=== PATIENT | female | born 1955 | race African-American/Black ===

== ENCOUNTER 2016-07-10 13:17 | Inpatient (IN) | payer MEDICAID, OTHER ==
[~2016-07-10] VITALS: Ht 157.5 cm; Wt 44.0 kg
[~2016-07-10 13:17] MED LIST: ALENDRONAT70 MG/75 M PO; AMLODIPINE BES10 MG PO; CEPHALEXIN500 M2 PO; COLACE100 M1 PO; KLOR-CON 1010 ME1 PO; LACTINEX1 TAB.CHEW PO; LEVOFLOXACIN250 MG PO; LISINOPRIL10 M1 PO; MAGNESIUM OXID200 MG PO; METOPROLOL50 M1 PO; Metoprolol Tartrate PO; ONDANSETRON8 M1 PO; OXYCODONE AND A1 TA1 PO; OYSTER SHELL C500 M3 PO; ZOCOR40 MG PO
[2016-07-10 13:34] VITALS: BP 144/86
--- NOTE | 2016-07-10 13:43 | NUR ---
Patient to XRAY via wheelchair per tech.
--- NOTE | 2016-07-10 13:47 | NUR ---
Patient back from XRAY via wheelchair per tech.
--- NOTE | 2016-07-10 14:31 | NUR ---
Patient ambulated to bed 06.
[2016-07-10] MEDS ORDERED: NACL 0.9% 1,000 ML IV ONE (14:50)
--- NOTE | 2016-07-10 14:56 | NUR ---
Dr. Manriquez evaluating patient at bedside.
--- NOTE | 2016-07-10 15:07 | NUR ---
PT CAME IN WITH CO RECTAL BLEEDING.
[2016-07-10] MEDS ORDERED: MORPHINE SULFATE 4 MG/ML SYR IVP ONE (15:10)
--- NOTE | 2016-07-10 15:43 | NUR ---
Patient went to CT via wheelchair per tech.
--- NOTE | 2016-07-10 15:59 | NUR ---
Patient back from CT via wheelchair per tech.
--- NOTE | 2016-07-10 16:45 | NUR ---
PT TRANSFERRED TO 106B WITH A MONITOR.RIGHT UPPER ARM 20 GAUGE IV STILL PATENT AND INTACT WITH IVF 0.9 NS ONGOING.
--- NOTE | 2016-07-10 17:00 | NUR ---
PATIENT ADMITTED TO TELE FROM ER WITH C/O LLQ PAIN. PATIENT DX WITH ANEMIA, RECTAL BLEED, AND HEMORRHOIDS. PATIENT IS AAOX4. TRANSFERRED FROM [facility] TO BED, AMBULATED WELL TO BATHROOM. IV SITE PATENT AND INTACT. NO S/S OF RESPIRATORY DISTRESS. DENIES PAIN AT THIS TIME. PATIENT HAS SPOTTING BLEED IN RECTAL AREA. NO EDEMA. SAFETY MEASURES FOR FALL IN PLACE. CALL LIGHT WITHIN REACH. WILL CONTINUE TO MONITOR.
[2016-07-10] MEDS ORDERED: LORazepam 2 MG/ML VIAL IVP PRN (19:05)
[2016-07-10] MEDS ORDERED: ALBUTEROL 0.083% 2.5 MG/3 ML NEBU IH PRN (19:05)
[2016-07-10] MEDS ORDERED: ONDANSETRON 4 MG/2 ML VIAL IVP PRN (19:05)
--- NOTE | 2016-07-10 19:05 | NUR ---
PATIENT SEEN BY DR. CANALES AT BEDSIDE. NO S/S OF ACUTE DISTRESS.
--- NOTE | 2016-07-10 19:15 | NUR ---
SBAR REPORT GIVEN TO FREDY CASPER AT PT BEDSIDE. NO S/S OF ACUTE DISTRESS.
[2016-07-10] MEDS: NACL 0.9% 1,000 ML IV SCH (19:18)
[2016-07-10] MEDS ORDERED: BOWEL EVACUANT DRINK 4,000 ML PDS PO ONE (19:20)
--- NOTE | 2016-07-10 19:30 | NUR ---
RECEIVED REPORT FROM KARON DANIEL AT BEDSIDE. PT IS ALERT AWAKE ORIENTED X4. INITIAL ASSESSMENT DONE. NO S/S OF RESPIRATORY DISTRESS OR SOB NOTED. NO C/O PAIN OR ANY DISCOMFORT AT THIS TIME. PLAN OF CARE REVIEWED TO PT AND VERBALIZED UNDERSTANDING. CALL LIGHT WITHIN REACH. WILL CONTINUE TO MONITOR.
[2016-07-10 20:00] VITALS: BP 139/83
[2016-07-10] MEDS: SIMVASTATIN 40 MG TAB PO SCH (20:25)
[2016-07-10] MEDS: MORPHINE SULFATE 2 MG/ML SYR IVP PRN (20:26)
[2016-07-11] VITALS: BP 136/81
--- NOTE | 2016-07-11 00:20 | NUR ---
PT IS SLEEPING RIGHT NOW BUT EASILY AROUSABLE. NO S/S OF ANY DISCOMFORT AT THIS TIME. ALL NEEDS ARE ATTENDED. CALL LIGHT WITHIN REACH. WILL CONTINUE TO MONITOR.
[2016-07-11] MEDS: MORPHINE SULFATE 2 MG/ML SYR IVP PRN (03:14)
[2016-07-11 04:00] VITALS: BP 129/73
--- NOTE | 2016-07-11 05:15 | NUR ---
AM CARE RENDERED. BED LINEN CHANGED. INSTRUCTED PT TO REPOSITION. KEPT CLEAN AND DRY. CALL LIGHT WITHIN REACH. WILL CONTINUE TO MONITOR.
--- NOTE | 2016-07-11 07:25 | NUR ---
PT HAS NO S/S OF ANY DISCOMFORT. PLAN OF CARE ENDORSE TO AM SHIFT NURSE FOR CONTINUITY OF CARE.
--- NOTE | 2016-07-11 07:26 | NUR ---
RECEIVED REPORT FROM NIGHT RN AT PT BEDSIDE. PT AMBULATORY TO BATHROOM. NO S/S OF ACUTE DISTRESS. AAOX4. CALL LIGHT WITHIN REACH. IV SITE PATENT AND INTACT. DENIES PAIN. LINENS CLEAN AND DRY. PATIENT TAKING BOWEL PREP, TOLERATING WELL. PATIENT HAS DIRTY WATERY STOOL. PT AWARE OF COLONOSCOPY PROCEDURE. WILL CONTINUE TO MONITOR.
--- NOTE | 2016-07-11 07:53 | NUR ---
PATIENT HAS BEEN SCREENED AND CATEGORIZED HIGH NUTRITION RISK. PATIENT WILL BE SEEN WITHIN 1-2 DAYS OF ADMISSION. 07/11/16-07/12/[address]
[2016-07-11 08:00] VITALS: BP 136/89
[2016-07-11] MEDS: NACL 0.9% 1,000 ML IV SCH ×2 (08:23→21:43)
[2016-07-11] MEDS ORDERED: MAGNESIUM CITRATE 300 ML BTL PO SCH (08:30)
[2016-07-11] MEDS: DOCUSATE SODIUM 100 MG GELCAP PO SCH (08:56)
[2016-07-11] MEDS: LISINOPRIL 10 MG TAB PO SCH (08:56)
[2016-07-11] MEDS: amLODIPine 5 MG TAB PO SCH (08:56)
[2016-07-11] MEDS: METOPROLOL 50 MG TAB PO SCH (08:56)
[2016-07-11] MEDS ORDERED: MAG SULF 2000 MG/WATER PREMIX 50 ML IV SCH (09:00)
--- NOTE | 2016-07-11 09:00 | NUR ---
PATIENT SEEN BY DR. CANALES. NEW ORDERS RECEIVED. PATIENT TOLERATING BOWEL PREP.
--- NOTE | 2016-07-11 10:20 | NUR ---
PATIENT STARTED ON BLOOD TRANSFUSION. NO S/S OF ACUTE DISTRESS. IV SITE PATENT AND INTACT. DENIES DISCOMFORT. AMBULATORY. CALL LIGHT WITHIN REACH. WILL CONTINUE TO MONITOR.
[2016-07-11] MEDS ORDERED: MIDAZOLAM 2 MG/2 ML VIAL ONE ×2 (11:57)
[2016-07-11] MEDS ORDERED: fentaNYL 0.05 MG/ML VIAL ONE (11:57)
[2016-07-11] MEDS ORDERED: diphenhydrAMINE 50 MG/ML VIAL ONE (11:57)
--- NOTE | 2016-07-11 12:00 | NUR ---
PATIENT TAKEN OFF FLOOR FOR COLONOSCOPY. BLOOD CURRENTLY TRANSFUSING. NO S/S OF DISTRESS. SON AT BEDSIDE, MADE AWARE OF PROCEDURE.
[2016-07-11] MEDS: MIDAZOLAM 2 MG/2 ML VIAL IVP ONE ×2 (12:10→12:59)
[2016-07-11] MEDS: fentaNYL 0.05 MG/ML VIAL IVP ONE ×2 (12:11→12:59)
--- NOTE | 2016-07-11 12:23 | NUR ---
CM NOTE INITIAL REVIEW SENT TO [facility] FAX# [phone] PH# BRENDON [phone] AUGUST [phone]
--- NOTE | 2016-07-11 12:45 | NUR ---
PATIENT RETURNED FROM COLONOSCOPY. PT SLEEPING, EASILY AWAKENS. NO S/S OF ACUTE DISTRESS. VS WNL. WILL CONTINUE TO MONITOR.
--- NOTE | 2016-07-11 13:45 | NUR ---
07/11/16 RD INITIAL ASSESSMENT COMPLETED PLEASE REFER TO NUTRITION ASSESSMENT UNDER CARE ACTIVITY FOR ESTIMATED NUTRITIONAL NEEDS. RD RECOMMENDATIONS: 1. WHEN MEDICALLY APPROPRIATE ADVANCE DIET TO SOFT. 2. CONSIDER ADDING BOOST PLUS TID ONCE DIET IS ADVANCED D/T UNDERWEIGHT. 3. RD WILL F/U 3-5 DAYS; MODERATE RISK. LESA REYES RD
[2016-07-11 16:10] VITALS: BP 126/61
--- NOTE | 2016-07-11 16:22 | NUR ---
DR. CANALES PAGED REGARDING FEVER 101.1, NO NEW ORDERS. WILL MEDICATE ORDERED WITH TYLENOL, COOLING MEASURES IN PLACE. DR. CANALES NOTIFIED OF COLONOSCOPY REPORT, MD TO TALK WITH GENERAL SURGEON REGARDING PLAN OF CARE.
[2016-07-11] MEDS: ACETAMINOPHEN 325 MG TAB PO PRN (16:25)
--- NOTE | 2016-07-11 17:35 | NUR ---
TEMPERATURE RE-ASSESSMENT 100.5, WILL CONTINUE COOLING MEASURES.
--- NOTE | 2016-07-11 18:49 | NUR ---
PATIENT RESTING WELL, TOLERATED FOOD WELL, ATE 100%, DENIES ANY PAIN OR DISCOMFORT
--- NOTE | 2016-07-11 19:09 | NUR ---
NO DISTRESS/SOB/WHEEZING NOTED AT THIS TIME. NO INDICATION FOR HHN PRN TX.
--- NOTE | 2016-07-11 19:28 | NUR ---
SBAR REPORT GIVEN TO EDITOR SOUND WALDO, PATIENT NO SIGN OF ACUTE DISTRESS
--- NOTE | 2016-07-11 19:28 | NUR ---
REPORT GIVEN AT BEDSIDE,PATIENT IS CURRENTLY AWAKE ALERT ORIENTED RESTING IN BED AT THIS TIME,IVF INFUSING WELL IV SITE PATENT NO INFILTRATION NOTED,PATIENT ON FALL PRECAUTIONS.PATIENT DENIES PAIN AT THIS TIME.WILL CONTINUE TO OBSERVE.CALL LIGHT WITHIN REACH.
--- NOTE | 2016-07-11 20:00 | NUR ---
Patient's Plan of Care was discussed and reviewed with DICTAPHONE OPERATOR: ESDRAS LINK
[2016-07-11 20:05] VITALS: BP 100/61
[2016-07-11] MEDS: SIMVASTATIN 40 MG TAB PO SCH (20:33)
--- NOTE | 2016-07-11 20:35 | NUR ---
ROUNDS MADE EDUCATION GIVEN ON ROUTINE NIGHTIME MEDICATIONS PATIENT VERBALIZED UNDERSTANDING AND TOOK HER MEDICATIONS.CALL LIGHT WITHIN REACH WILL CONTINUE TO MONITOR.
--- NOTE | 2016-07-11 22:11 | NUR ---
ROUNDS MADE SON AT BEDSIDE WITH THE PATIENT.IV MACHINE CHECKED KEEPS BEEPING SAYING AIR IN THE LINE.IV LINE DISCONNECTED FROM THE PATIENT AND PRIMED GOT ALL THE AIR OUT.CONNECTION PORT CLEANED WITH ALCOHOL AND THEN RECONNECTED TO THE PATIENT AGAIN.PATIENT CURRENTLY STABLE NO PAIN OR DISCOMFORT NOTED AT THIS TIME SON AND PATIENT WATCHING TV.
--- NOTE | 2016-07-12 00:10 | NUR ---
PATIENT IS SLEEPING QUIETLY IN BED IN NO DISTRESS AT THIS TIME,IVF INFUSING WELL IV SITE PATENT.NO PAIN OR DISCOMFORT NOTED.WILL CONTINUE TO MONITOR.
[2016-07-12] MEDS: NACL 0.9% 1,000 ML IV SCH ×2 (01:19→15:47)
--- NOTE | 2016-07-12 03:15 | NUR ---
PATIENT SLEEPING IN BED,IVF INFUSING WELL,NO PAIN OR DISCOMFORT NOTED.WILL CONTINUE TO MONITOR.CALL LIGHT WITHIN REACH.
[2016-07-12 04:00] VITALS: BP 130/77
[2016-07-12] MEDS: MORPHINE SULFATE 2 MG/ML SYR IVP PRN ×3 (04:48→15:40)
--- NOTE | 2016-07-12 04:48 | NUR ---
PATIENT STABLE VITALS STABLE PATIENT IS AFEBRILE AND COMPLAIN OF SEVERE PAIN RN [facility] WILL MEDICATE FOR PAIN.
--- NOTE | 2016-07-12 06:30 | NUR ---
PATIENT SLEEPING IN BED.
--- NOTE | 2016-07-12 07:25 | NUR ---
PATIENT STABLE REPORT ENDORSED AT BEDSIDE TO FREDY GUEVARA.
--- NOTE | 2016-07-12 07:40 | NUR ---
PT AAOX4, PLEASANT AND COOPERATIVE LYING IN BED COMFORTABLY AND WAS IN NO DISTRESS. SHIFT ASSESSMENT DONE AND CHARTED. PLAN OF CARE, MEDS, TREATMENTS AND SAFETY DISCUSSED WITH PT AND PT VERBALIZED UNDERSTANDING. PT AMBULATED TO BR WITH STEADY GAIT. WILL CONTINUE TO MONITOR PT.
[2016-07-12 08:00] VITALS: BP 125/76
[2016-07-12] MEDS: amLODIPine 5 MG TAB PO SCH (08:07)
[2016-07-12] MEDS: DOCUSATE SODIUM 100 MG GELCAP PO SCH (08:07)
[2016-07-12] MEDS: METOPROLOL 50 MG TAB PO SCH (08:08)
[2016-07-12] MEDS: LISINOPRIL 10 MG TAB PO SCH (08:08)
--- NOTE | 2016-07-12 08:40 | NUR ---
DR. CANALES WAS IN TO SEE PT AND MD LEFT NEW ORDERS.
[2016-07-12 09:39] VITALS: BP 123/77
--- NOTE | 2016-07-12 10:36 | NUR ---
PT MEDICATED WITH MORPHINE 2 MG FOR C/O ABDOMINAL PAIN 10/30. PT'S FAMILY VISITING AT BEDSIDE.
--- NOTE | 2016-07-12 11:06 | NUR ---
PT STATED THAT HER ABDOMINAL PAIN INTENSITY WAS LESS 4/10. WILL CONTINUE TO CHECK ON PT.
--- NOTE | 2016-07-12 14:13 | NUR ---
PT AMBULATING IN THE HALLWAY WITH STEADY GAIT. NO C/O PAIN AT THIS TIME.
--- NOTE | 2016-07-12 15:40 | NUR ---
PT MEDICATED WITH MORPHINE 2 MG PER PRN ORDER FOR C/O ABDOMINAL PAIN 12/30. WILL CONTINUE TO CHECK PT.
[2016-07-12 16:03] VITALS: BP 109/72
--- NOTE | 2016-07-12 16:10 | NUR ---
PT RESTING IN BED COMFORTABLY. PT STATED THAT HER PAIN WAS 2/10.
[2016-07-12] MEDS: ACETAMINOPHEN 325 MG TAB PO PRN (18:35)
[2016-07-12] MEDS: SIMETHICONE 80 MG TAB.CHEW PO PRN (18:35)
--- NOTE | 2016-07-12 18:39 | NUR ---
PT MEDICATED WITH TYLENOL 650 MG PO FOR C/O ABDOMINAL PAIN 12/30 AND GAS PAIN. PT AWARE THAT IT WAS TOO SOON FOR MORPHINE. PT'S FAMILY VISITING AT BEDSIDE.
--- NOTE | 2016-07-12 19:10 | NUR ---
PATIENT IS RESTING IN BED WITH FAMILY AT BEDSIDE CONVERSATING PATIENT IS SMILING AND TALKING.WILL COME BACK TO CHECK ON THE PATIENT.
--- NOTE | 2016-07-12 19:10 | NUR ---
REPORT GIVEN TO WALDO GARCIA. NO CHANGES NOTED IN PT'S CONDITION. PT'S FAMILY VISITING AT BEDSIDE.
--- NOTE | 2016-07-12 19:39 | NUR ---
PATIENT IS CURRENTLY RESTING IN BED AWAKE ALERT ORIENTED IVF INFUSING WELL,IV SITE PATENT PATIENT STATES,"THE GAS PILL WAS VERY EFFECTIVE I FEEL SO MUCH BETTER IT TOOK MY STOMACH PAIN AWAY." PATIENT WATCHING TV AT THIS TIME CALL LIGHT WITHIN REACH WILL CONTINUE TO MONITOR.
--- NOTE | 2016-07-12 20:00 | NUR ---
Patient's Plan of Care was discussed and reviewed with INTERACTIVE DESIGNER: WALDO LINK
[2016-07-12 20:01] VITALS: BP 107/69
[2016-07-12] MEDS: SIMVASTATIN 40 MG TAB PO SCH (20:08)
--- NOTE | 2016-07-12 20:08 | NUR ---
I ASKED THE PATIENT WHEN WAS THE LAST TIME SHE HAD A BOWEL MOVEMENT AND SAID 07/11/16 I ASKED HER IF SHE HAS HAD ANY LOOSE STOOLS OR HAS HAD ANY DIARRHEA TODAY PATIENT STATES,"NO I HAVEN'T HAD A BM YET TODAY AND I DON'T HAVE ANY LOOSE STOOLS OR DIARRHEA." NO SIGNS OF ANY ACTIVE BLEEDING NOTED WILL CONTINUE TO MONITOR.CALL LIGHT WITHIN REACH.
--- NOTE | 2016-07-13 00:15 | NUR ---
PATIENT AWAKE ALERT VITALS SIGNS TAKEN PT IS AFEBRILE PATIENT DENIES PAIN AND DISCOMFORT.WILL CONTINUE TO MONITOR.
[2016-07-13 00:38] VITALS: BP 121/70
--- NOTE | 2016-07-13 03:10 | NUR ---
PATIENT IS CURRENTLY SLEEPING IN NO DISTRESS WILL CONTINUE TO MONITOR.CALL LIGHT WITHIN REACH.
[2016-07-13] MEDS: SIMETHICONE 80 MG TAB.CHEW PO PRN ×3 (04:21→20:08)
[2016-07-13] MEDS: ACETAMINOPHEN 325 MG TAB PO PRN ×3 (04:21→20:07)
--- NOTE | 2016-07-13 04:21 | NUR ---
PATIENT COMPLAINS OF MODERATE PAIN TO ABDOMEN AND REFUSED THE MORPHINE IV WANTS INSTEAD TYLENOL AND IS REQUESTING FOR GAS PAIN PATIENT WILL BE MEDICATED WITH MYLICON WILL CONTINUE TO MONITOR.
[2016-07-13] MEDS: NACL 0.9% 1,000 ML IV SCH ×3 (04:22→20:08)
--- NOTE | 2016-07-13 06:25 | NUR ---
PATIENT IS CURRENTLY SLEEPING.IVF INFUSING WELL IV SITE PATENT NO PAIN OR DISCOMFORT NOTED WILL CONTINUE TO MONITOR.CALL LIGHT WITHIN REACH.
--- NOTE | 2016-07-13 07:40 | NUR ---
PT SLEEPING IN BED COMFORTABLY AND WAS IN NO DISTRESS. PT ROUSABLE AND VOICED NO C/O PAIN/ DISCOMFORT. SHIFT ASSESSMENT DONE AND CHARTED. PLAN OF CARE, MEDS, TREATMENTS AND SAFETY DISCUSSED WITH PT AND PT VERBALIZED UNDERSTANDING. WILL CONTINUE TO CHECK ON PT.
[2016-07-13 08:00] VITALS: BP 141/80
[2016-07-13] MEDS: DOCUSATE SODIUM 100 MG GELCAP PO SCH (08:30)
[2016-07-13] MEDS: METOPROLOL 50 MG TAB PO SCH (08:30)
[2016-07-13] MEDS: amLODIPine 5 MG TAB PO SCH (08:30)
[2016-07-13] MEDS: LISINOPRIL 10 MG TAB PO SCH (08:31)
[2016-07-13] MEDS ORDERED: HYDROcodone/APAP 5/325 MG 1 TAB TAB PO PRN (08:45)
--- NOTE | 2016-07-13 09:00 | NUR ---
PT TOOK DIET, FLUIDS AND SCHEDULED MEDS WELL. PT WAS SEEN BY DR. CANALES AND LEFT NEW ORDERS.
--- NOTE | 2016-07-13 13:10 | NUR ---
PT C/O UNCOMFORTABLE BECAUSE OF CONSTIPATION. PHONED DR. CANALES AND MADE AWARE OF PT'S COMPLAIT WHEN SHE CALLED BACK. GAVE NEW ORDERS.
[2016-07-13] MEDS ORDERED: POLYETHYLENE GLYCOL 17 GM/PKT PO SCH (13:30)
[2016-07-13] MEDS: POLYETHYLENE GLYCOL 17 GM/PKT PO SCH (14:37)
--- NOTE | 2016-07-13 15:00 | NUR ---
PT WAS SEEN BY DR. GALAN AND MD LEFT NEW ORDERS.
[2016-07-13 15:59] VITALS: BP 142/93
--- NOTE | 2016-07-13 18:37 | NUR ---
PT C/O DIFFICULTY WITH HER DIET SHE DOES NOT HAVE TEETH. DR. CANALES WAS IN AND MADE AWARE OF SAME. PT'S FAMILY VISITING AT THIS TIME. REMINDED PT THAT SHE WILL BE NPO AFTER MIDNIGHT AND PT VERBALIZED UNDERSTANDING.
--- NOTE | 2016-07-13 19:12 | NUR ---
REPORT GIVEN TO WALDO GARCIA. PT LYING IN BED COMFORTABLY AND VOICED NO C/O ANY DISCOMFORT.
--- NOTE | 2016-07-13 19:13 | NUR ---
PATIENT IS CURRENTLY AWAKE ALERT ORIENTED RESTING IN BED PATIENT DENIES PAIN AND DISCOMFORT.IVF INFUSING WELL IV SITE PATENT.PATIENT IN NO DISTRESS WILL CONTINUE TO MONITOR.CALL LIGHT WITHIN REACH.
--- NOTE | 2016-07-13 20:00 | NUR ---
Patient's Plan of Care was discussed and reviewed with TIME CLOCK MECHANIC: WALDO LINK
[2016-07-13] MEDS: SIMVASTATIN 40 MG TAB PO SCH (20:08)
--- NOTE | 2016-07-13 20:08 | NUR ---
PATIENT IS CURRENTLY RESTING IN BED EDUCATION GIVEN ON ROUTINE MEDICATION AND PATIENT VERBALIZED UNDERSTANDING AND TOOK HER MEDS.WILL CONTINUE TO MONITOR.
[2016-07-13 20:27] VITALS: BP 118/69
--- NOTE | 2016-07-13 21:45 | NUR ---
PATIENT RESTING COMFORTABLY IN BED WILL CONTINUE TO MONITOR.
--- NOTE | 2016-07-14 00:05 | NUR ---
PATIENT IS CURRENTLY STABLE RESTING IN BED DENIES PAIN IVF INFUSING WELL IV SITE REMAINS PATENT CALL LIGHT WITHIN REACH WILL CONTINUE TO MONITOR.
[2016-07-14 00:09] VITALS: BP 120/72
--- NOTE | 2016-07-14 02:53 | NUR ---
PATIENT SLEEPING NO PAIN OR DISCOMFORT IV INFUSING WELL IV SITE PATENT.CALL LIGHT WITHIN REACH.
--- NOTE | 2016-07-14 04:15 | NUR ---
PATIENT IS CURRENTLY RESTING IN BED,IVF INFUSING WELL IV SITE PATENT WILL CONTINUE TO MONITOR.NEEDS MET.
[2016-07-14] MEDS: MORPHINE SULFATE 2 MG/ML SYR IVP PRN ×2 (05:02→21:21)
--- NOTE | 2016-07-14 07:23 | NUR ---
PATIENT STABLE REPORT ENDORSED TO FREDY GUEVARA HE WILL RESUME CARE OF THE PATIENT.
--- NOTE | 2016-07-14 07:30 | NUR ---
RECEIVED PT LYING IN BED SLEEPING BUT EASILY ROUSABLE. PT. STATED THAT SHE HAD BEARABLE ABDOMINAL PAIN 06/30. NO OTHER C/O DISCOMFORT VOICED BY PT. PT NPO FOR MEDIPORT PLACEMENT TODAY. SHIFT ASSESSMENT DONE AND CHARTED. PLAN OF CARE, MEDS, TREATMENTS AND SAFETY DISCUSSED WITH PT AND PT VERBALIZED UNDERSTANDING. WILL CONTINUE TO MONITOR PT.
[2016-07-14] MEDS: NACL 0.9% 1,000 ML IV SCH ×2 (07:50→21:21)
--- NOTE | 2016-07-14 07:58 | NUR ---
RECEIVED MESSAGE FROM OR THAT PT'S MEDIPORT PLACEMENT FOR TODAY WAS CANCELLED. VERIFIED SAME BY PHONE TO OR. PT MADE AWARE OF SAME.
[2016-07-14 08:00] VITALS: BP 145/81
[2016-07-14] MEDS: POLYETHYLENE GLYCOL 17 GM/PKT PO SCH (09:24)
[2016-07-14] MEDS: LISINOPRIL 10 MG TAB PO SCH (09:25)
[2016-07-14] MEDS: amLODIPine 5 MG TAB PO SCH (09:25)
[2016-07-14] MEDS: METOPROLOL 50 MG TAB PO SCH (09:26)
[2016-07-14] MEDS: DOCUSATE SODIUM 100 MG GELCAP PO SCH (09:26)
[2016-07-14] MEDS: ACETAMINOPHEN 325 MG TAB PO PRN ×3 (09:31→23:53)
[2016-07-14] MEDS: SIMETHICONE 80 MG TAB.CHEW PO PRN ×3 (09:32→23:53)
--- NOTE | 2016-07-14 09:40 | NUR ---
DR. CANALES WAS IN TO SEE PT. AWARE OF MEDIPORT PLACEMENT CANCELLATION. NO NEW ORDERS NOTED AT THIS TIME.
--- NOTE | 2016-07-14 12:30 | NUR ---
PT TOOK DIET AND FLUIDS WELL. NO C/O PAIN VOICED AT THIS TIME.
--- NOTE | 2016-07-14 13:43 | NUR ---
DR. GALAN WAS IN TO SEE PT AND MD LEFT NEW ORDERS. PT'S FAMILY VISITING AT BEDSIDE.
[2016-07-14 16:00] VITALS: BP 125/77
--- NOTE | 2016-07-14 16:41 | NUR ---
PT C/O ABDOMINAL/GAS PAIN AND PT MEDICATED PER PRN ORDER. WILL CONTINUE TO CHECK ON PT.
--- NOTE | 2016-07-14 18:30 | NUR ---
PT TOOK DIET AND FLUIDS WELL. PT REMINDED THAT SHE WILL BE NPO AFTER MIDNIGHT FOR PROCEDURE IN AM.
--- NOTE | 2016-07-14 19:27 | NUR ---
REPORT GIVEN TO ADITHYA RN. NO CHANGES NOTED IN PT'S CONDITION.
--- NOTE | 2016-07-14 19:30 | NUR ---
RECEIVED FROM AM RN IN BED AWAKE . RE-ORIENTED TO CALL LIGHT FOR HELP AND IF IN PAIN. CARE PLANS FOR THE NIGHT DISCUSSED WITH HER. IVF SITE TO RIGHT FOREARM #20 INTACT AND NO INFILTRATION NOTED. ENCOURAGED TO CALL FOR ANY HELP SHE MAY NEED OR IF IN PAIN.
[2016-07-14] MEDS: SIMVASTATIN 40 MG TAB PO SCH (21:21)
--- NOTE | 2016-07-14 21:25 | NUR ---
PT. MEDICATED WITH MORPHINE ORDERED IVP RELATED TO PAIN BROUGHT ABOUT BY THE" MASS IN HER BUTTOCK " STATED BY PT. STAYING WITH PT. FOR A WHILE WITH PT. RT VERY RESTLESS AND IN PAIN.
--- NOTE | 2016-07-14 22:31 | NUR ---
PT. SLEEPING AT THIS TIME. ABLE TO USE CALL LIGHT FOR ANY HELP SHE NEEDS OR IF IN PAIN. BED ALARM ON.
[2016-07-14 23:21] VITALS: BP 120/70
--- NOTE | 2016-07-14 23:46 | NUR ---
SLEEPING. WOKE UP WHEN VITAL SIGNS TAKEN. NO FURTHER COMPLAINTS DONE.
--- NOTE | 2016-07-15 03:53 | NUR ---
SLEEPING . NO RESTLESSNESS. CALL LIGHT WITH IN REACH.
[2016-07-15] MEDS: MORPHINE SULFATE 2 MG/ML SYR IVP PRN (05:17)
--- NOTE | 2016-07-15 06:43 | NUR ---
BEEN NPO SINCE MIDNIGHT. PT. AWARE OF IT. VERBALIZES NEEDS WELL. NO SOB. FOR [facility] CATH PLACEMENT AT 0730 SCHEDULE.
--- NOTE | 2016-07-15 07:10 | NUR ---
REPORT RECEIVED FROM ADITHYA AT BEDSIDE. PT SLEEPING AT THIS TIME. PT NPO FOR MEDIPORT PLACEMENT TODAY.
[2016-07-15] MEDS ORDERED: LIDOCAINE 1% 50 ML ONE (07:25)
[2016-07-15] MEDS ORDERED: BUPIVACAINE-MPF 0.25% 30 ML VIAL INJ ONE (07:25)
[2016-07-15] MEDS ORDERED: ceFAZolin 1,000 MG VIAL ONE ×2 (07:25→07:54)
[2016-07-15 07:30] VITALS: BP 138/84
--- NOTE | 2016-07-15 07:30 | NUR ---
PT LYING IN BED SLEEPING COMFORTABLY AND WAS IN NO DISTRESS. PT EASILY ROUSABLE AND VOICED NO C/O PAIN AT THIS TIME. SHIFT ASSSESSMENT DONE AND CHARTED. PLAN OF CARE, MEDS, TREATMENTS AND SAFETY DISCUSSED WITH PT AND PT VERBALIZED UNDERSTANDING. PT. TO OR PER BED ACCOMPANIED BY OR STAFF FOR MEDIPORT PLACEMENT. PT LET IN A STABLE CONDITION.
[2016-07-15] MEDS ORDERED: PROPOFOL 200 MG/20 ML VIAL IV ONE (08:00)
[2016-07-15] MEDS ORDERED: fentaNYL 0.05 MG/ML VIAL ONE (08:11)
[2016-07-15] MEDS ORDERED: MIDAZOLAM 2 MG/2 ML VIAL ONE (08:11)
[2016-07-15] MEDS ORDERED: ONDANSETRON 4 MG/2 ML VIAL IVP PRN (08:40)
[2016-07-15] MEDS ORDERED: HYDROmorphone 1 MG/ML AMP IVP PRN ×2 (08:40→09:20)
[2016-07-15] MEDS ORDERED: LACTATED RINGERS 1,000 ML IV SCH (08:40)
[2016-07-15] MEDS ORDERED: MEPERIDINE 25 MG/ML SYR IVP PRN (08:40)
[2016-07-15] MEDS ORDERED: diphenhydrAMINE 50 MG/ML VIAL IVP PRN (08:40)
[2016-07-15] MEDS ORDERED: ONDANSETRON 4 MG/2 ML VIAL IV PRN (09:20)
[2016-07-15] MEDS ORDERED: HYDROcodone/APAP 5/325 MG 1 TAB TAB PO PRN (09:20)
[2016-07-15] MEDS ORDERED: MORPHINE SULFATE 2 MG/ML SYR IVP PRN (09:20)
[2016-07-15] MEDS ORDERED: MORPHINE SULFATE 4 MG/ML SYR IV PRN (09:20)
[2016-07-15 10:00] VITALS: BP 138/89
--- NOTE | 2016-07-15 10:00 | NUR ---
PT RETURNED TO HER ROOM PER BED FROM OR S/P MEDIPORT CATHETER PLACEMENT IN THE UPPER CHEST WITH DRESSINGS NOTED WITH DRIED BLOOD SPOT AND PRESSURE BAG APPLIED TO THE AREA. PT AAOX4 AND C/O ABDOMINAL PAIN FROM GAS AND THE PORT SITE 08/30. REPORT RECEIVED FROM ENRIQUE Calderon RN FROM OR. VSS AND PT RESTING IN BED COMFORTABLY. PT TAKING LIQUIDS AND PO MEDS WELL. WILL CONTINUE TO MONITOR PT.
[2016-07-15] MEDS: SIMETHICONE 80 MG TAB.CHEW PO PRN (10:12)
[2016-07-15] MEDS: POLYETHYLENE GLYCOL 17 GM/PKT PO SCH (10:12)
[2016-07-15] MEDS: ACETAMINOPHEN 325 MG TAB PO PRN (10:13)
[2016-07-15] MEDS: LISINOPRIL 10 MG TAB PO SCH (10:13)
[2016-07-15] MEDS: DOCUSATE SODIUM 100 MG GELCAP PO SCH (10:13)
[2016-07-15] MEDS: amLODIPine 5 MG TAB PO SCH (10:14)
[2016-07-15] MEDS: METOPROLOL 50 MG TAB PO SCH (10:14)
[2016-07-15 10:15] VITALS: BP 136/85
[2016-07-15 10:30] VITALS: BP 144/86
[2016-07-15 10:45] VITALS: BP 152/88
[2016-07-15 11:00] VITALS: BP 142/78
--- NOTE | 2016-07-15 11:20 | NUR ---
PT UP TO THE BR PER SELF AND VOICED NO C/O PAIN/ DISCOMFORT AT THIS TIME.
--- NOTE | 2016-07-15 12:30 | NUR ---
PT TOOK DIET AND FLUIDS WELL. PT NOTED TO BE SLEEPING AFTER.
--- NOTE | 2016-07-15 14:00 | NUR ---
PT NOTED TO BE SLEEPING COMFORTABLY WHEN CHECKED.
--- NOTE | 2016-07-15 14:01 | NUR ---
FAXED CONCURRENT REFVIEW TO [facility] [phone] PHONE BRENDON [phone]
--- NOTE | 2016-07-15 15:00 | NUR ---
DISCHARGED INSTRUCTIONS GIVEN TO PT AND PT VERBALIZED UNDERSTANDING. PT PHONING FAMILY TO PICK HER UP. NO C/O GAS PAIN MADE BY PT AT THIS TIME.
--- NOTE | 2016-07-15 16:30 | NUR ---
SALINE LOCK REMOVED WITH OLD CATH TIP INTACT AND PRESSURE DRESSINGS APPLIED TO SITE. PT DISCHARGED TO HOME PER W/C ACCOMPANIED BY HER BOYFRIEND IN STABLE CONDITION. OROZCO NEEDLE AND ALL PT'S BELONGINGS SENT WITH PT. NO BLEEDING NOTED IN MEDIPORT CATH SITE.
--- NOTE | 2016-07-16 15:45 | NUR ---
RECEIVED CALL FROM BRENDON AT [facility] THAT PT'S ONCOLOGY WITH DR DON HAS BEEN APPROVED. CALL PLACED TO MS MENDIETA AND INFORMED HER THAT APPT HAS BEEN APPROVED. PT STATED THAT SHE ALREADY HAS AN APPT WITH DR DON SCHEDULED FOR THIS THURSDAY.
== END 2016-07-15 16:30 | disposition home or self-care (01) | DRG 240 ==
LOC: MED 13:17 → MTU 15:40
PROVIDERS: ADMIT Hospitalist; ATTEND Hospitalist
PROC: 30233N1 Transfusion of Nonautologous Red Blood Cells into Peripheral Vein, Percutaneous Approach (ICD-10-PCS; 2016-07-10)
PROC: 0DBP8ZX Excision of Rectum, Via Natural or Artificial Opening Endoscopic, Diagnostic (ICD-10-PCS; principal; 2016-07-11 12:00)
PROC: 02HV33Z Insertion of Infusion Device into Superior Vena Cava, Percutaneous Approach (ICD-10-PCS; 2016-07-15)
PROC: B5181ZA Fluoroscopy of Superior Vena Cava using Low Osmolar Contrast, Guidance (ICD-10-PCS; 2016-07-15)
PROC: B547ZZA Ultrasonography of Left Subclavian Vein, Guidance (ICD-10-PCS; 2016-07-15)
DX: C21.8 Malignant neoplasm of overlapping sites of rectum, anus and anal canal (principal); E43 Unspecified severe protein-calorie malnutrition; C78.01 Secondary malignant neoplasm of right lung; N17.9 Acute kidney failure, unspecified; E86.0 Dehydration; C78.02 Secondary malignant neoplasm of left lung; J44.9 Chronic obstructive pulmonary disease, unspecified; K57.30 Diverticulosis of large intestine without perforation or abscess without bleeding; I10 Essential (primary) hypertension; K64.4 Residual hemorrhoidal skin tags; M81.0 Age-related osteoporosis without current pathological fracture; E78.5 Hyperlipidemia, unspecified; D50.0 Iron deficiency anemia secondary to blood loss (chronic); E78.00 Pure hypercholesterolemia, unspecified; Z87.891 Personal history of nicotine dependence; Z92.21 Personal history of antineoplastic chemotherapy; Z86.73 Personal history of transient ischemic attack (TIA), and cerebral infarction without residual deficits; Z87.898 Personal history of other specified conditions; Z92.3 Personal history of irradiation; Z68.1 Body mass index [BMI] 19.9 or less, adult; Z85.850 Personal history of malignant neoplasm of thyroid

== ENCOUNTER 2017-05-18 08:54 | Inpatient (IN) | payer OTHER ==
[~2017-05-18] VITALS: Ht 162.6 cm; Wt 36.3 kg
[~2017-05-18 08:54] MED LIST changes: +ACET-6763 PO; +ALEN70SO1 PO; -ALENDRONAT70 MG/75 M PO; +AMLO-26 PO; -AMLODIPINE BES10 MG PO; +CALC500T17 PO; -CEPHALEXIN500 M2 PO; -COLACE100 M1 PO; +DOCU-299 PO; -KLOR-CON 1010 ME1 PO; +LAC PO; -LACTINEX1 TAB.CHEW PO; -LEVOFLOXACIN250 MG PO; +LISI10TA11 PO; -LISINOPRIL10 M1 PO; -MAGNESIUM OXID200 MG PO; +METO50TA20 PO; -METOPROLOL50 M1 PO; -Metoprolol Tartrate PO; +ONDA8TAB13 PO; -ONDANSETRON8 M1 PO; -OXYCODONE AND A1 TA1 PO; -OYSTER SHELL C500 M3 PO; +SIMV40TA1 PO; -ZOCOR40 MG PO
[2017-05-18 09:09] VITALS: BP 149/97
[2017-05-18] MEDS ORDERED: MORPHINE SULFATE 4 MG/ML SYR IVP ONE (10:15)
[2017-05-18] MEDS ORDERED: KETOROLAC 30 MG/ML VIAL IVP ONE (10:15)
[2017-05-18] MEDS ORDERED: ONDANSETRON 4 MG/2 ML VIAL IVP ONE (10:15)
[2017-05-18 10:46] LABS: BASOPHILS % (AUTO) 0.2 % (0.0-2.0); EOSINOPHILS % (AUTO) 0.7 % (0.0-4.0); HEMATOCRIT 32.9 % (36-48); LYMPHOCYTES # (AUTO) 0.4 K/uL (2.5-16.5); LYMPHOCYTES % (AUTO) 5.8 % (20.5-51.1); MEAN CORPUSCULAR HEMOGLOBIN 33 pg (27-31); MEAN CORPUSCULAR HGB CONC 34 g/dL (33-37); MEAN CORPUSCULAR VOLUME 99 fL (80-94); MONOCYTES # (AUTO) 0.4 K/uL (0.8-1.0); MONOCYTES % (AUTO) 6.7 % (1.7-9.3); NEUTROPHILS # (AUTO) 5.8 K/uL (1.8-7.7); NEUTROPHILS % (AUTO) 86.6 % (42.2-75.2); PLATELET COUNT (AUTO) 193 K/uL (140-450); RED BLOOD CELL COUNT(AUTO) 3.33 MIL/uL (4.20-5.40); RED CELL DISTRIBUTION WIDTH 17.2 % (11.6-13.7); WHITE BLOOD COUNT (AUTO) 6.7 K/uL (4.8-10.8)
[2017-05-18 11:02] LABS: ANION GAP 12.7 (8-16); CARBON DIOXIDE 24.7 mmol/L (21-32); POTASSIUM 4.4 mmol/L (3.5-5.1)
[2017-05-18 11:08] LABS: ALBUMIN 2.5 g/dL (3.4-5.0); TOTAL BILIRUBIN 0.2 mg/dL (0.0-1.0)
[2017-05-18 11:21] LABS: PROTHROMBIN TIME 11.9 secs (10.8-13.4)
[2017-05-18] MEDS ORDERED: LORazepam 2 MG/ML VIAL IVP PRN (12:15)
[2017-05-18] MEDS ORDERED: HYDROcodone/APAP 5/325 MG 1 TAB TAB PO PRN (12:15)
[2017-05-18] MEDS ORDERED: ACETAMINOPHEN 325 MG TAB PO PRN (12:15)
[2017-05-18] MEDS: NACL 0.9% 1,000 ML IV SCH ×2 (12:31→22:50)
[2017-05-18] MEDS ORDERED: amLODIPine 5 MG TAB PO SCH (12:48)
[2017-05-18 13:40] VITALS: BP 138/93
[2017-05-18] MEDS: ALBUTEROL 0.083% 2.5 MG/3 ML NEBU IH SCH ×2 (13:47→19:13)
[2017-05-18] MEDS: MORPHINE SULFATE 4 MG/ML SYR IVP PRN ×2 (14:49→20:01)
[2017-05-18 16:00] VITALS: BP 125/79
[2017-05-18 20:00] VITALS: BP 129/77
[2017-05-19] VITALS: BP 128/64
[2017-05-19] MEDS: ALBUTEROL 0.083% 2.5 MG/3 ML NEBU IH SCH ×3 (01:00→12:48)
[2017-05-19] MEDS: MORPHINE SULFATE 4 MG/ML SYR IVP PRN ×4 (01:50→16:34)
[2017-05-19 04:00] VITALS: BP 120/68
[2017-05-19 07:15] LABS: BASOPHILS % (AUTO) 0.1 % (0.0-2.0); EOSINOPHILS # (AUTO) 0.1 K/uL (0-0.4); HEMATOCRIT 29.7 % (36-48); LYMPHOCYTES # (AUTO) 0.2 K/uL (2.5-16.5); LYMPHOCYTES % (AUTO) 3.5 % (20.5-51.1); MEAN CORPUSCULAR HEMOGLOBIN 33 pg (27-31); MEAN CORPUSCULAR HGB CONC 34 g/dL (33-37); MEAN CORPUSCULAR VOLUME 99 fL (80-94); MONOCYTES # (AUTO) 0.4 K/uL (0.8-1.0); MONOCYTES % (AUTO) 7.4 % (1.7-9.3); NEUTROPHILS # (AUTO) 5.3 K/uL (1.8-7.7); PLATELET COUNT (AUTO) 169 K/uL (140-450); RED CELL DISTRIBUTION WIDTH 18.2 % (11.6-13.7)
[2017-05-19 08:00] VITALS: BP 134/91
[2017-05-19] MEDS: NACL 0.9% 1,000 ML IV SCH (08:11)
[2017-05-19] MEDS ORDERED: methylPREDNISolone SS 40 MG in WATER STERILE 1 ML IV ONE (09:00)
[2017-05-19] MEDS ORDERED: methylPREDNISolone SS 40 MG/ML VIAL IVP SCH (09:00)
[2017-05-19] MEDS ORDERED: ENOXAPARIN 30 MG/0.3 ML SYR SUBQ SCH (09:00)
[2017-05-19 09:33] LABS: ALBUMIN 2.2 g/dL (3.4-5.0); ANION GAP 15.1 (8-16); CARBON DIOXIDE 24.5 mmol/L (21-32); CREATININE 0.7 mg/dL (0.6-1.3); POTASSIUM 4.6 mmol/L (3.5-5.1); TOTAL BILIRUBIN 0.2 mg/dL (0.0-1.0)
[2017-05-19 09:46] LABS: MAGNESIUM 1.6 mg/dL (1.8-2.4); PHOSPHORUS 2.8 mg/dL (2.5-4.9)
[2017-05-19] MEDS ORDERED: MAG SULF 2000 MG/WATER PREMIX 50 ML IV SCH (11:00)
[2017-05-19] MEDS ORDERED: ONDANSETRON 4 MG/2 ML VIAL IVP PRN (12:05)
[2017-05-19 16:00] VITALS: BP 139/104
== END 2017-05-19 17:30 | disposition hospice, home (50) | DRG 343 ==
LOC: MED 08:54 → MTU 12:16
PROVIDERS: ADMIT Hospitalist; ATTEND Hospitalist
DX: C79.51 Secondary malignant neoplasm of bone (principal); E43 Unspecified severe protein-calorie malnutrition; C78.00 Secondary malignant neoplasm of unspecified lung; C20 Malignant neoplasm of rectum; E86.0 Dehydration; I10 Essential (primary) hypertension; Z66 Do not resuscitate; D64.9 Anemia, unspecified; G89.29 Other chronic pain; Z68.1 Body mass index [BMI] 19.9 or less, adult
CPT/HCPCS: 36415; 71045; 72128; 72131; 80053; 83735; 84100; 85025; 85610; 85730; 87081; 93005; 94640; 96374; 96375; 99291; J1650; J1885; J2060; J2270; J2405; J2920; J3475; J7030; J7613; Q0092